=== PATIENT | female | born 1970 | race African-American/Black ===

== ENCOUNTER 2018-05-01 14:50 | Inpatient (IN) | payer OTHER ==
[~2018-05-01] VITALS: Ht 172.7 cm; Wt 68.0 kg
[2018-05-03] MEDS ORDERED: PERCOCET 5-3251 EACH PO (13:11)
== END 2018-05-03 14:10 | disposition home or self-care (01) | DRG 343 ==
LOC: ER 14:50 → SURG 05-02 04:54
PROVIDERS: Surgery
PROC: 0DTJ4ZZ Resection of Appendix, Percutaneous Endoscopic Approach (ICD-10-PCS; principal; 2018-05-02 10:30)
DX: K35.89 Other acute appendicitis (principal)

== ENCOUNTER 2019-06-17 11:27 | Emergency (ER) | payer OTHER ==
[~2019-06-17] VITALS: Ht 172.7 cm; Wt 72.6 kg
[~2019-06-17 11:27] MED LIST: PERCOCET 5-3251 EACH PO
[2019-06-17] MEDS ORDERED: LISINOPRIL10 MG (11:49)
== END 2019-06-17 12:53 | disposition home or self-care (01) ==
LOC: ER 11:27
DX: M54.5 Low back pain (principal)

== ENCOUNTER 2020-11-14 12:36 | Emergency (ER) | payer OTHER ==
[~2020-11-14] VITALS: Ht 172.7 cm; Wt 72.6 kg
[~2020-11-14 12:36] MED LIST changes: +LISINOPRIL10 MG
[2020-11-14] MEDS ORDERED: CLARITIN10 M1 PO (17:48)
[2020-11-14] MEDS ORDERED: ZITHROMAX500 MG PO (17:48)
== END 2020-11-14 17:52 | disposition home or self-care (01) ==
LOC: ER 12:36
DX: B34.9 Viral infection, unspecified (principal); Z20.822 Contact with and (suspected) exposure to COVID-19

== ENCOUNTER → 2023-01-26 | Emergency (ER) | payer OTHER ==
[~2023-01-26] VITALS: Ht 172.7 cm; Wt 74.8 kg
[~2023-01-26] MED LIST changes: +AMLODIPINE-OLM1 EACH PO; +CLARITIN10 M1 PO; +ZITHROMAX500 MG PO
== END | disposition left against medical advice (07) ==
LOC: ER 09:36
DX: R10.32 Left lower quadrant pain (principal); Z88.6 Allergy status to analgesic agent; Z88.0 Allergy status to penicillin; Z88.8 Allergy status to other drugs, medicaments and biological substances; K80.20 Calculus of gallbladder without cholecystitis without obstruction